=== PATIENT | male | born 1955 | race Caucasian/White ===

== ENCOUNTER 2018-11-16 05:55 | Emergency (ER) | payer BC, OTHER ==
[~2018-11-16] VITALS: Ht 177.8 cm; Wt 87.7 kg
[2018-11-16] MEDS ORDERED: VITAMIN D5000 UNIT PO (06:11)
[2018-11-16] MEDS ORDERED: MULTI VITAMIN1 EACH PO (06:11)
[2018-11-16] MEDS ORDERED: CHLORTHALIDONE25 MG PO (06:12)
[2018-11-16] MEDS ORDERED: MOBIC15 MG PO (06:12)
[2018-11-16] MEDS ORDERED: OXYBUTYNIN 5 MG5 M2 PO (06:13)
[2018-11-16] MEDS ORDERED: PROSCAR 5MG TABL5 M1 PO (06:13)
[2018-11-16] MEDS ORDERED: TERAZOSIN HCL10 MG PO (06:14)
[2018-11-16] MEDS ORDERED: ZOCOR20 MG PO (06:14)
[2018-11-16 07:12] LABS: ABSOLUTE EOSINOPHILS 0.2 thou/uL (0.0-0.7); ABSOLUTE MONOCYTES 0.5 thou/uL (0.0-1.2); ABSOLUTE NEUTROPHILS 6.4 thou/uL (1.6-8.1); BASOPHILS 0.5 %; EOSINOPHILS 1.9 %; HEMATOCRIT 43.8 % (42.0-52.0); HEMOGLOBIN 14.7 gm/dL (14.0-18.0); LYMPHOCYTES 12.2 %; MCH 28.9 pg (26.0-34.0); MCHC 33.6 g/dL (28.0-37.0); MCV 86.1 fL (80.0-100.0); MONOCYTES 5.7 %; NUCLEATED RBCS 0 /100WBC; PLATELET COUNT* 131 thou/uL (150-400); POLYS 79.7 %; RBC 5.09 mil/uL (4.50-6.00); RDW-CV 14.3 % (10.5-14.5)
[2018-11-16 07:36] LABS: CALCIUM 8.1 mg/dL (8.5-10.1); CREATININE 0.7 mg/dL (0.6-1.3); POTASSIUM 3.3 mmol/L (3.5-5.1)
[2018-11-16 07:40] LABS: ALBUMIN 3.4 g/dL (3.4-5.0); TOTAL BILIRUBIN 1.3 mg/dL (<0.1-1.0); TOTAL PROTEIN 6.2 g/dL (6.4-8.2)
[2018-11-16 08:03] LABS: URINE BILIRUBIN NEGATIVE (Negative); URINE BLOOD 3+ (Negative); URINE CLARITY CLOUDY; URINE COLOR YELLOW; URINE GLUCOSE-RANDOM NEGATIVE (Negative); URINE KETONES 2+ (Negative); URINE LEUKOCYTES-REFLEX 1+ (Negative); URINE NITRITE-REFLEX NEGATIVE (Negative); URINE PROTEIN NEGATIVE (Negative); URINE SPECIFIC GRAVITY 1.015 (1.005-1.030); URINE UROBILINOGEN 0.2 E.U./dl (0.2-1.0)
[2018-11-16 08:10] LABS: SQUAMOUS 0-3 Few /LPF (0-3)
[2018-11-16 08:12] LABS: CASTS None Seen /LPF (None Seen); CRYSTALS None Seen /LPF (None Seen); MUCUS 0-3 Light strn/LPF (None Seen); URINE RBC >20 Many /HPF (0-2); URINE WBC-REFLEX 6-15 Few /HPF (0-5)
[2018-11-16] MEDS ORDERED: KEFLEX500 M1 PO (08:28)
[2018-11-16] MEDS ORDERED: AZITHROMYCIN500 MG PO (08:28)
[2018-11-16 08:47] VITALS: BP 125/72
== END 2018-11-16 08:48 | disposition home or self-care (01) ==
LOC: M.ERS 05:55
PROVIDERS: Emergency Medicine
DX: N39.0 Urinary tract infection, site not specified (principal); R19.7 Diarrhea, unspecified; I10 Essential (primary) hypertension; Z88.8 Allergy status to other drugs, medicaments and biological substances; R31.9 Hematuria, unspecified

== ENCOUNTER 2020-09-27 12:15 | Inpatient (IN) | payer OTHER, MEDICARE, BC ==
[~2020-09-27] VITALS: Ht 177.8 cm; Wt 81.5 kg
[~2020-09-27 12:15] MED LIST: AZITHROMYCIN500 MG PO; CHLORTHALIDONE25 MG PO; KEFLEX500 M1 PO; MOBIC15 MG PO; MULTI VITAMIN1 EACH PO; OXYBUTYNIN 5 MG5 M2 PO; PROSCAR 5MG TABL5 M1 PO; TERAZOSIN HCL10 MG PO; VITAMIN D5000 UNIT PO; ZOCOR20 MG PO
[2020-09-27 12:51] LABS: HEMATOCRIT 37.2 % (42.0-52.0); HEMOGLOBIN 12.3 gm/dL (14.0-18.0); MCHC 33.1 g/dL (28.0-37.0); MCV 87.7 fL (80.0-100.0); MPV 8.7 fl. (7.2-11.1); NUCLEATED RBCS 0 /100WBC; PLATELET COUNT* 255 thou/uL (150-400); RBC 4.24 mil/uL (4.50-6.00); RDW-CV 14.2 % (10.5-14.5); WBC 11.2 thou/uL (4.0-11.0)
[2020-09-27 13:00] LABS: CALCIUM 8.2 mg/dL (8.5-10.1); CREATININE 0.9 mg/dL (0.6-1.3); POTASSIUM 3.5 mmol/L (3.5-5.1)
[2020-09-27 13:14] LABS: ABSOLUTE EOSINOPHILS 0.1 thou/uL (0.0-0.7); ABSOLUTE LYMPHOCYTES 0.7 thou/uL (0.8-5.3); ABSOLUTE MONOCYTES 0.3 thou/uL (0.0-1.2); ABSOLUTE NEUTROPHILS 10.1 thou/uL (1.6-8.1); ATYPICAL LYMPHS 2 %; PLATELET ESTIMATE ADEQUATE
[2020-09-27 13:18] LABS: ALBUMIN 2.3 g/dL (3.4-5.0); TOTAL BILIRUBIN 0.5 mg/dL (<0.1-1.0); TOTAL PROTEIN 6.1 g/dL (6.4-8.2)
[2020-09-27] MEDS ORDERED: ALBUTEROL2.5 MG/0.5 INH (14:13)
[2020-09-27] MEDS ORDERED: CARBIDOPA-LEVO1 EAC9 PO (14:13)
[2020-09-27] MEDS ORDERED: AMANTADINE 100100 MG PO (14:13)
[2020-09-27] MEDS ORDERED: MYRBETRIQ25 MG PO (14:14)
[2020-09-27] MEDS ORDERED: HYOSYNE PO (14:14)
[2020-09-27] MEDS ORDERED: GLYCOPYRROLATE 11 MG PO (14:14)
[2020-09-27] MEDS ORDERED: DESYREL150 MG PO (14:14)
[2020-09-27 14:23] VITALS: BP 125/54
[2020-09-27 14:57] VITALS: BP 117/67
[2020-09-27] MEDS ORDERED: NORVASC5 M1 PO (17:13)
[2020-09-27] MEDS ORDERED: VESICARE10 M1 PO (17:16)
[2020-09-27] MEDS ORDERED: CARBIDOPA-LEVO1 EAC7 PO (17:16)
--- NOTE | 2020-09-27 17:46 | EKG ---
[place] [address] ELECTROCARDIOGRAM REPORT Name: OLYA LUNDBERG Room: [address] ADM IN .R.#: [id number] Admission: 09/27/20 Attend Phys: Leonora Dennis Discharge: Date of : 53 Date of Service: 09/27/20 1228 Report #: [id number] THIS REPORT FOR: //name// [facility] ED Test Date: 2020-09-27 Test Time: 12:28:14 Pat Name: OLYA LUNDBERG Department: Room: [facility] Gender: M Monotyper: IRVIN : 1955 Requested By: Mando Candelaria Order Number: [id number] MD: Selvin Ypeez Measurements Intervals [place] Rate: 103 P: 49 IA: 190 QRS: 30 QRSD: 92 T: 26 QT: 352 QTc: 461 Interpretive Statements Sinus tachycardia Left atrial enlargement, possible anteroseptal infarct, old, possible No previous ECG available for comparison Electronically Signed On 09-27-2020 17:46:08 CDT by Selvin Yepez [email or web address] <ELECTRONICALLY SIGNED> By: Selvin Yepez MD, FACC 09/27/20 1746 1228 1228 Selvin Yepez MD, [facility] /EPI
[2020-09-27 20:30] VITALS: BP 118/58
[2020-09-27 23:44] VITALS: BP 126/67
[2020-09-28 04:56] VITALS: BP 124/76
[2020-09-28 06:23] LABS: ABSOLUTE LYMPHOCYTES 0.5 thou/uL (0.8-5.3); ABSOLUTE MONOCYTES 0.6 thou/uL (0.0-1.2); ABSOLUTE NEUTROPHILS 9.8 thou/uL (1.6-8.1); BASOPHILS 0.1 %; EOSINOPHILS 0.3 %; HEMATOCRIT 34.8 % (42.0-52.0); HEMOGLOBIN 11.3 gm/dL (14.0-18.0); LYMPHOCYTES 4.4 %; MCH 28.6 pg (26.0-34.0); MCHC 32.6 g/dL (28.0-37.0); MCV 87.7 fL (80.0-100.0); MONOCYTES 5.9 %; MPV 8.9 fl. (7.2-11.1); NUCLEATED RBCS 0 /100WBC; PLATELET COUNT* 264 thou/uL (150-400); POLYS 89.3 %; RBC 3.96 mil/uL (4.50-6.00); RDW-CV 14.3 % (10.5-14.5); WBC 10.9 thou/uL (4.0-11.0)
[2020-09-28 06:30] LABS: CALCIUM 7.9 mg/dL (8.5-10.1); CREATININE 0.7 mg/dL (0.6-1.3)
[2020-09-28 08:30] VITALS: BP 125/50
[2020-09-28 12:03] VITALS: BP 105/48
--- NOTE | 2020-09-28 12:36 | EKG ---
[place] [address] ELECTROCARDIOGRAM REPORT Name: OLYA LUNDBERG Room: [address] ADM IN M.R.#: [id number] Admission: 09/27/20 Attend Phys: Leonora Dennis Discharge: Date of : 53 Date of Service: 09/28/20604 Report #: [id number] THIS REPORT FOR: //name// [facility] Test Date: 2020-09-28 Test Time: 06:05:21 Pat Name: OLYA LUNDBERG Department: Room: [address] Gender: M Horse Rider: ZENAIDA : 1955 Requested By: Leonora Dennis Order Number: [id number] Reading MD: Ho Moses Measurements Intervals [place] Rate: 95 P: 52 [place]: 188 QRS: 22 QRSD: 93 T: 19 QT: 387 QTc: 487 Interpretive Statements Sinus rhythm Borderline ST elevation, lateral leads Borderline prolonged QT interval Baseline wander in lead(s) V1 Compared to ECG 09/27/2020 12:28:14 ST (T wave) deviation now present Sinus tachycardia no longer present Myocardial infarct finding no longer present Electronically Signed On 09-28-2020 12:35:47 CDT by Ho Moses [email or web address] <ELECTRONICALLY SIGNED> By: Ho Moses MD, [facility] 09/28/20 1235 4 Ho Moses MD, [facility] /EPI
[2020-09-28 17:26] VITALS: BP 122/61
[2020-09-28 20:00] VITALS: BP 128/64
[2020-09-29 00:09] VITALS: BP 116/66
[2020-09-29 03:50] VITALS: BP 118/70
[2020-09-29 09:00] VITALS: BP 126/92
[2020-09-29 09:58] LABS: CALCIUM 7.6 mg/dL (8.5-10.1); CREATININE 0.7 mg/dL (0.6-1.3); HEMATOCRIT 37.3 % (42.0-52.0); HEMOGLOBIN 12.3 gm/dL (14.0-18.0); MCH 28.9 pg (26.0-34.0); MCHC 32.9 g/dL (28.0-37.0); MCV 87.8 fL (80.0-100.0); MPV 9.2 fl. (7.2-11.1); POTASSIUM 3.8 mmol/L (3.5-5.1); RBC 4.25 mil/uL (4.50-6.00); RDW-CV 14.2 % (10.5-14.5); WBC 13.3 thou/uL (4.0-11.0)
[2020-09-29 12:28] VITALS: BP 110/59
[2020-09-29 16:18] VITALS: BP 103/85
[2020-09-29 23:53] VITALS: BP 136/62
[2020-09-30 04:11] VITALS: BP 122/58
[2020-09-30 04:55] LABS: HEMATOCRIT 32.5 % (42.0-52.0); HEMOGLOBIN 11.1 gm/dL (14.0-18.0); MCH 29.9 pg (26.0-34.0); MCHC 34.2 g/dL (28.0-37.0); MCV 87.4 fL (80.0-100.0); MPV 9.2 fl. (7.2-11.1); RBC 3.73 mil/uL (4.50-6.00); RDW-CV 14.2 % (10.5-14.5); WBC 13.3 thou/uL (4.0-11.0)
[2020-09-30 05:18] LABS: CALCIUM 7.2 mg/dL (8.5-10.1); CREATININE 0.7 mg/dL (0.6-1.3)
[2020-09-30 12:30] VITALS: BP 107/48
[2020-09-30 15:50] VITALS: BP 128/63
[2020-09-30 19:45] VITALS: BP 109/54
[2020-09-30 23:41] VITALS: BP 133/70
[2020-10-01 04:11] VITALS: BP 124/64
[2020-10-01 07:00] VITALS: BP 120/62
[2020-10-01 08:00] VITALS: BP 123/67
[2020-10-01 16:00] VITALS: BP 108/56
[2020-10-01 21:39] VITALS: BP 122/66
[2020-10-02] VITALS (9 sets, daily range): BP systolic 95–121; BP diastolic 53–73
[2020-10-02 04:42] LABS: HEMATOCRIT 34.9 % (42.0-52.0); MCH 29.8 pg (26.0-34.0); MCHC 34.3 g/dL (28.0-37.0); MPV 8.4 fl. (7.2-11.1); RBC 4.01 mil/uL (4.50-6.00); RDW-CV 14.1 % (10.5-14.5); WBC 8.3 thou/uL (4.0-11.0)
[2020-10-02 04:56] LABS: CALCIUM 6.8 mg/dL (8.5-10.1); CREATININE 0.6 mg/dL (0.6-1.3); POTASSIUM 3.9 mmol/L (3.5-5.1)
[2020-10-02] MEDS ORDERED: LEVOFLOXACIN500 MG PO (08:38)
[2020-10-03 00:04] VITALS: BP 111/60
[2020-10-03 03:54] VITALS: BP 118/62
[2020-10-03 08:00] VITALS: BP 101/56
[2020-10-03 11:31] LABS: ABSOLUTE EOSINOPHILS 0.3 thou/uL (0.0-0.7); ABSOLUTE LYMPHOCYTES 0.6 thou/uL (0.8-5.3); ABSOLUTE MONOCYTES 0.7 thou/uL (0.0-1.2); ABSOLUTE NEUTROPHILS 8.7 thou/uL (1.6-8.1); BASOPHILS 0.3 %; EOSINOPHILS 2.5 %; HEMATOCRIT 36.9 % (42.0-52.0); HEMOGLOBIN 12.4 gm/dL (14.0-18.0); LYMPHOCYTES 5.6 %; MCH 29.7 pg (26.0-34.0); MCHC 33.6 g/dL (28.0-37.0); MCV 88.4 fL (80.0-100.0); MONOCYTES 6.8 %; MPV 8.5 fl. (7.2-11.1); NUCLEATED RBCS 0 /100WBC; PLATELET COUNT* 178 thou/uL (150-400); POLYS 84.8 %; RBC 4.18 mil/uL (4.50-6.00); RDW-CV 14.7 % (10.5-14.5); WBC 10.3 thou/uL (4.0-11.0)
[2020-10-03 11:38] LABS: CALCIUM 7.1 mg/dL (8.5-10.1); CREATININE 0.8 mg/dL (0.6-1.3); POTASSIUM 3.5 mmol/L (3.5-5.1)
[2020-10-03 11:43] LABS: APTT 24.5 Seconds (25.0-31.3); INR 1.1; PROTIME 11.5 Seconds (9.20-11.50)
[2020-10-03 12:00] VITALS: BP 145/60
[2020-10-03 18:55] VITALS: BP 140/58
[2020-10-04 04:06] VITALS: BP 96/46
[2020-10-04 04:44] LABS: HEMATOCRIT 36.3 % (42.0-52.0); HEMOGLOBIN 12.4 gm/dL (14.0-18.0); MCH 30.2 pg (26.0-34.0); MCHC 34.3 g/dL (28.0-37.0); MCV 88.1 fL (80.0-100.0); MPV 9.2 fl. (7.2-11.1); RBC 4.12 mil/uL (4.50-6.00); RDW-CV 14.7 % (10.5-14.5); WBC 9.5 thou/uL (4.0-11.0)
[2020-10-04 04:51] LABS: CALCIUM 7.1 mg/dL (8.5-10.1); CREATININE 0.7 mg/dL (0.6-1.3); POTASSIUM 3.8 mmol/L (3.5-5.1)
[2020-10-04 06:04] VITALS: BP 121/56; BP 127/57
[2020-10-04 12:47] VITALS: BP 110/49
[2020-10-04 15:33] VITALS: BP 116/57
[2020-10-04 20:00] VITALS: BP 110/72
[2020-10-05 01:07] VITALS: BP 96/63
[2020-10-05 04:54] VITALS: BP 101/65
[2020-10-05 08:35] VITALS: BP 125/59
[2020-10-05 08:37] LABS: HEMATOCRIT 41.5 % (42.0-52.0); HEMOGLOBIN 13.7 gm/dL (14.0-18.0); MCHC 33.1 g/dL (28.0-37.0); MCV 87.7 fL (80.0-100.0); MPV 8.6 fl. (7.2-11.1); RBC 4.74 mil/uL (4.50-6.00); RDW-CV 14.5 % (10.5-14.5); WBC 8.6 thou/uL (4.0-11.0)
[2020-10-05 09:15] LABS: CALCIUM 7.7 mg/dL (8.5-10.1); CREATININE 0.7 mg/dL (0.6-1.3); POTASSIUM 3.7 mmol/L (3.5-5.1)
[2020-10-05 12:00] VITALS: BP 100/52
[2020-10-05 16:00] VITALS: BP 135/69
[2020-10-05 20:05] VITALS: BP 100/51
[2020-10-06] VITALS (8 sets, daily range): BP systolic 87–141; BP diastolic 46–68
[2020-10-06] MEDS ORDERED: VENTOLIN HFA 1818 GM INH (12:23)
[2020-10-07] VITALS: BP 112/79
[2020-10-07 04:00] VITALS: BP 101/62
[2020-10-07 08:51] VITALS: BP 119/63
[2020-10-07 09:00] VITALS: BP 119/63
[2020-10-07 13:16] VITALS: BP 102/46
== END 2020-10-07 17:33 | DRG 177 ==
LOC: M.ERS 12:15 → M.2W 13:16 → M.TBA-ER 13:16 → M.ORTHSURG 14:50 → M.2W 14:51
PROVIDERS: Emergency Medicine Emergency Medical Services; Internal Medicine; ADMIT Internal Medicine; ATTEND Internal Medicine
PROC: 05HY33Z Insertion of Infusion Device into Upper Vein, Percutaneous Approach (ICD-10-PCS; principal; 2020-09-27)
PROC: XW033E5 Introduction of Remdesivir Anti-infective into Peripheral Vein, Percutaneous Approach, New Technology Group 5 (ICD-10-PCS; 2020-09-28)
PROC: XW13325 Transfusion of Convalescent Plasma (Nonautologous) into Peripheral Vein, Percutaneous Approach, New Technology Group 5 (ICD-10-PCS; 2020-10-04)
PROC: 5A0935A Assistance with Respiratory Ventilation, Less than 24 Consecutive Hours, High Flow/Velocity Cannula (ICD-10-PCS; 2020-10-05)
DX: U07.1 COVID-19 (principal); J12.82 Pneumonia due to coronavirus disease 2019; Z66 Do not resuscitate; I10 Essential (primary) hypertension; Z98.49 Cataract extraction status, unspecified eye; Z88.8 Allergy status to other drugs, medicaments and biological substances; Z79.899 Other long term (current) drug therapy; G20 Parkinson's disease; I95.1 Orthostatic hypotension

== ENCOUNTER 2020-10-07 14:24 | Inpatient (IN) | payer MEDICARE, BC ==
[~2020-10-07] VITALS: Ht 177.8 cm; Wt 79.4 kg
[~2020-10-07 14:24] MED LIST changes: +ALBUTEROL2.5 MG/0.5 INH; +AMANTADINE 100100 MG PO; +CARBIDOPA-LEVO1 EAC7 PO; +CARBIDOPA-LEVO1 EAC9 PO; +DESYREL150 MG PO; +GLYCOPYRROLATE 11 MG PO; +HYOSYNE PO; +LEVOFLOXACIN500 MG PO; +MYRBETRIQ25 MG PO; +NORVASC5 M1 PO; +VENTOLIN HFA 1818 GM INH; +VESICARE10 M1 PO
[2020-10-07 20:00] VITALS: BP 136/61
[2020-10-08 04:45] LABS: HEMATOCRIT 36.4 % (42.0-52.0); HEMOGLOBIN 12.3 gm/dL (14.0-18.0); MCH 29.8 pg (26.0-34.0); MCHC 33.9 g/dL (28.0-37.0); MCV 88.1 fL (80.0-100.0); MPV 8.8 fl. (7.2-11.1); RBC 4.13 mil/uL (4.50-6.00); RDW-CV 14.7 % (10.5-14.5); WBC 9.1 thou/uL (4.0-11.0)
[2020-10-08 05:04] LABS: CALCIUM 7.4 mg/dL (8.5-10.1); CREATININE 0.7 mg/dL (0.6-1.3); POTASSIUM 3.5 mmol/L (3.5-5.1)
[2020-10-08 08:00] VITALS: BP 110/64
[2020-10-08 19:35] VITALS: BP 111/57
[2020-10-09 05:46] LABS: HEMOGLOBIN 12.4 gm/dL (14.0-18.0); MCH 29.4 pg (26.0-34.0); PLATELET COUNT* 87 thou/uL (150-400); RBC 4.22 mil/uL (4.50-6.00); WBC 6.4 thou/uL (4.0-11.0)
[2020-10-09 05:47] LABS: ALBUMIN 2.3 g/dL (3.4-5.0); CALCIUM 7.2 mg/dL (8.5-10.1); CREATININE 0.6 mg/dL (0.6-1.3); POTASSIUM 3.3 mmol/L (3.5-5.1); TOTAL BILIRUBIN 0.6 mg/dL (<0.1-1.0); TOTAL PROTEIN 4.9 g/dL (6.4-8.2)
[2020-10-09 05:48] LABS: ABSOLUTE EOSINOPHILS 0.1 thou/uL (0.0-0.7); ABSOLUTE LYMPHOCYTES 0.7 thou/uL (0.8-5.3); ABSOLUTE MONOCYTES 0.6 thou/uL (0.0-1.2); EOSINOPHILS 1.3 %; HEMATOCRIT 36.7 % (42.0-52.0); MCHC 33.8 g/dL (28.0-37.0); MCV 86.9 fL (80.0-100.0); MONOCYTES 9.3 %; MPV 8.8 fl. (7.2-11.1); NUCLEATED RBCS 0 /100WBC; POLYS 78.4 %; RDW-CV 14.9 % (10.5-14.5)
[2020-10-09 07:42] VITALS: BP 120/59
[2020-10-09 19:35] VITALS: BP 109/45
[2020-10-10 07:25] VITALS: BP 123/54
[2020-10-10 07:54] LABS: ABSOLUTE EOSINOPHILS 0.3 thou/uL (0.0-0.7); ABSOLUTE LYMPHOCYTES 1.1 thou/uL (0.8-5.3); ABSOLUTE MONOCYTES 0.4 thou/uL (0.0-1.2); ABSOLUTE NEUTROPHILS 6.1 thou/uL (1.6-8.1); BASOPHILS 0.1 %; EOSINOPHILS 3.3 %; HEMATOCRIT 37.9 % (42.0-52.0); HEMOGLOBIN 12.7 gm/dL (14.0-18.0); LYMPHOCYTES 13.7 %; MCH 29.2 pg (26.0-34.0); MCHC 33.4 g/dL (28.0-37.0); MCV 87.5 fL (80.0-100.0); MONOCYTES 5.6 %; MPV 9.2 fl. (7.2-11.1); NUCLEATED RBCS 0 /100WBC; PLATELET COUNT* 89 thou/uL (150-400); POLYS 77.3 %; RBC 4.33 mil/uL (4.50-6.00); RDW-CV 15.2 % (10.5-14.5); WBC 7.9 thou/uL (4.0-11.0)
[2020-10-10 08:08] LABS: ALBUMIN 2.4 g/dL (3.4-5.0); ALKALINE PHOSPHATASE 68 U/L (46-116); ANION GAP 2 mmol/L (7-16); BUN 18 mg/dL (7-18); CALCIUM 7.4 mg/dL (8.5-10.1); CHLORIDE 102 mmol/L (98-107); CO2 32 mmol/L (21-32); CREATININE 0.6 mg/dL (0.6-1.3); GLUCOSE 121 mg/dL (70-99); POTASSIUM 3.8 mmol/L (3.5-5.1); SGOT 6 U/L (15-37); SODIUM 136 mmol/L (136-145); TOTAL BILIRUBIN 0.8 mg/dL (<0.1-1.0)
[2020-10-10 08:23] LABS: SGPT < 6 U/L (30-65)
[2020-10-10 20:00] VITALS: BP 124/57
[2020-10-11 05:15] LABS: ABSOLUTE EOSINOPHILS 0.4 thou/uL (0.0-0.7); ABSOLUTE LYMPHOCYTES 1.1 thou/uL (0.8-5.3); ABSOLUTE MONOCYTES 0.4 thou/uL (0.0-1.2); ABSOLUTE NEUTROPHILS 6.5 thou/uL (1.6-8.1); BASOPHILS 0.1 %; EOSINOPHILS 4.6 %; HEMOGLOBIN 12.1 gm/dL (14.0-18.0); LYMPHOCYTES 12.8 %; MCH 29.9 pg (26.0-34.0); MCHC 34.5 g/dL (28.0-37.0); MCV 86.7 fL (80.0-100.0); MONOCYTES 5.2 %; MPV 8.8 fl. (7.2-11.1); NUCLEATED RBCS 0 /100WBC; PLATELET COUNT* 87 thou/uL (150-400); POLYS 77.3 %; RBC 4.04 mil/uL (4.50-6.00); RDW-CV 15.4 % (10.5-14.5); WBC 8.4 thou/uL (4.0-11.0)
[2020-10-11 05:34] LABS: ALBUMIN 2.2 g/dL (3.4-5.0); ALKALINE PHOSPHATASE 65 U/L (46-116); ANION GAP 2 mmol/L (7-16); BUN 15 mg/dL (7-18); CALCIUM 7.6 mg/dL (8.5-10.1); CHLORIDE 102 mmol/L (98-107); CO2 34 mmol/L (21-32); CREATININE 0.7 mg/dL (0.6-1.3); GLUCOSE 111 mg/dL (70-99); POTASSIUM 3.6 mmol/L (3.5-5.1); SGOT 9 U/L (15-37); SGPT < 6 U/L (30-65); SODIUM 138 mmol/L (136-145); TOTAL BILIRUBIN 0.7 mg/dL (<0.1-1.0); TOTAL PROTEIN 4.9 g/dL (6.4-8.2)
[2020-10-11 07:22] VITALS: BP 111/56
[2020-10-11 19:34] VITALS: BP 118/52
[2020-10-12 14:24] LABS: HEMATOCRIT 36.3 % (42.0-52.0); HEMOGLOBIN 12.3 gm/dL (14.0-18.0); MCH 30.1 pg (26.0-34.0); MCHC 33.9 g/dL (28.0-37.0); MPV 9.7 fl. (7.2-11.1); NUCLEATED RBCS 0 /100WBC; PLATELET COUNT* 84 thou/uL (150-400); RBC 4.09 mil/uL (4.50-6.00); RDW-CV 15.2 % (10.5-14.5); WBC 8.1 thou/uL (4.0-11.0)
[2020-10-12 14:51] LABS: ABSOLUTE EOSINOPHILS 0.6 thou/uL (0.0-0.7); ABSOLUTE LYMPHOCYTES 1.1 thou/uL (0.8-5.3); ABSOLUTE MONOCYTES 0.2 thou/uL (0.0-1.2); ABSOLUTE NEUTROPHILS 6.2 thou/uL (1.6-8.1); ATYPICAL LYMPHS 2 %; PLATELET ESTIMATE DECREASED
[2020-10-12 19:20] VITALS: BP 120/52
[2020-10-13 04:54] LABS: HEMATOCRIT 35.3 % (42.0-52.0); HEMOGLOBIN 12.2 gm/dL (14.0-18.0); MCH 30.4 pg (26.0-34.0); MCHC 34.5 g/dL (28.0-37.0); MCV 88.2 fL (80.0-100.0); MPV 8.8 fl. (7.2-11.1); WBC 7.5 thou/uL (4.0-11.0)
[2020-10-13 05:35] LABS: CALCIUM 8.1 mg/dL (8.5-10.1); CREATININE 0.6 mg/dL (0.6-1.3); POTASSIUM 3.4 mmol/L (3.5-5.1)
[2020-10-13 07:30] VITALS: BP 112/65
[2020-10-13 19:00] VITALS: BP 116/47
[2020-10-14 07:43] VITALS: BP 113/54
[2020-10-14 12:19] LABS: ABSOLUTE EOSINOPHILS 0.1 thou/uL (0.0-0.7); ABSOLUTE MONOCYTES 0.6 thou/uL (0.0-1.2); ABSOLUTE NEUTROPHILS 6.7 thou/uL (1.6-8.1); BASOPHILS 0.4 %; EOSINOPHILS 1.7 %; HEMATOCRIT 38.9 % (42.0-52.0); HEMOGLOBIN 13.2 gm/dL (14.0-18.0); LYMPHOCYTES 11.7 %; MCH 30.1 pg (26.0-34.0); MCV 88.6 fL (80.0-100.0); MPV 9.2 fl. (7.2-11.1); NUCLEATED RBCS 0 /100WBC; PLATELET COUNT* 82 thou/uL (150-400); POLYS 79.2 %; RBC 4.39 mil/uL (4.50-6.00); RDW-CV 15.6 % (10.5-14.5); WBC 8.4 thou/uL (4.0-11.0)
[2020-10-14 12:26] LABS: CALCIUM 8.3 mg/dL (8.5-10.1); CREATININE 0.8 mg/dL (0.6-1.3); POTASSIUM 3.8 mmol/L (3.5-5.1)
[2020-10-14 20:00] VITALS: BP 108/60
[2020-10-15 08:00] VITALS: BP 130/54
[2020-10-15] MEDS ORDERED: CARBIDOPA-LEVO1 EAC9 PO (10:00)
[2020-10-15] MEDS ORDERED: GLYCOPYRROLATE 11 MG PO (10:00)
[2020-10-15] MEDS ORDERED: ZOCOR20 MG PO (10:00)
[2020-10-15] MEDS ORDERED: MOBIC15 MG PO (10:00)
[2020-10-15] MEDS ORDERED: DESYREL150 MG PO (10:00)
[2020-10-15] MEDS ORDERED: MYRBETRIQ25 MG PO (10:00)
[2020-10-15] MEDS ORDERED: HYOSYNE PO (10:00)
[2020-10-15] MEDS ORDERED: AMANTADINE 100100 MG PO (10:00)
[2020-10-15] MEDS ORDERED: PROSCAR 5MG TABL5 M1 PO (10:00)
[2020-10-15] MEDS ORDERED: CHLORTHALIDONE25 MG PO (10:00)
[2020-10-15] MEDS ORDERED: TERAZOSIN HCL10 MG PO (10:00)
[2020-10-15] MEDS ORDERED: VENTOLIN HFA 1818 GM INH (10:00)
[2020-10-15] MEDS ORDERED: ALBUTEROL2.5 MG/0.5 INH (10:00)
[2020-10-15] MEDS ORDERED: NORVASC5 M1 PO (10:00)
[2020-10-15] MEDS ORDERED: VESICARE10 M1 PO (10:00)
[2020-10-15] MEDS ORDERED: VITAMIN D21250 MCG PO (10:00)
[2020-10-15] MEDS ORDERED: MULTI VITAMIN1 EACH PO (10:00)
[2020-10-15] MEDS ORDERED: CARBIDOPA-LEVO1 EAC7 PO (10:00)
[2020-10-15 20:05] VITALS: BP 109/48
[2020-10-16 07:30] VITALS: BP 119/51
[2020-10-16 10:26] VITALS: BP 119/51
== END 2020-10-16 12:27 | disposition home health service (06) | DRG 947 ==
LOC: M.REH 14:24
PROVIDERS: Internal Medicine; ADMIT Physical Medicine & Rehabilitation; ATTEND Physical Medicine & Rehabilitation
PROC: 5A0935A Assistance with Respiratory Ventilation, Less than 24 Consecutive Hours, High Flow/Velocity Cannula (ICD-10-PCS; principal; 2020-10-09)
PROC: 5A0935A Assistance with Respiratory Ventilation, Less than 24 Consecutive Hours, High Flow/Velocity Cannula (ICD-10-PCS; 2020-10-13)
DX: R53.81 Other malaise (principal); J96.01 Acute respiratory failure with hypoxia; I10 Essential (primary) hypertension; L70.9 Acne, unspecified; G20 Parkinson's disease; Z88.8 Allergy status to other drugs, medicaments and biological substances; Z98.49 Cataract extraction status, unspecified eye; Z86.16 Personal history of COVID-19